=== PATIENT | female | born 1970 | race Caucasian/White ===

== ENCOUNTER → 2018-12-13 16:23 | Outpatient (CLI) | payer OTHER, SELFPAY ==
--- NOTE | 2018-12-13 16:30 | DI.RAD.S_ITS ---
PROCEDURE: XR ANKLE RT MIN 3V INDICATIONS: right ankle pain for 3 weeks, rolled, lateral pain TECHNIQUE: 3 views of the ankle were acquired. COMPARISON: None. FINDINGS: Bones: No fractures or dislocations. Ankle mortise is normally aligned. No suspicious bony lesions. Soft tissues: Mild soft tissue swelling over lateral malleolus is seen. No tibiotalar joint effusion. Achilles tendon appears normal. IMPRESSION: No acute ankle fracture or dislocation. Mild lateral ankle soft tissue swelling. Dictated by: Michael Cintron M.D. on 12/13/2018 at 16:54 Approved by: Michael Cintron M.D. on 12/13/2018 at 16:55
--- NOTE | 2018-12-13 16:30 | DI.RAD.S_ITS ---
PROCEDURE: XR FOOT RT MIN 3V INDICATIONS: right foot pain TECHNIQUE: 3 views of the foot were acquired. COMPARISON: None. FINDINGS: Bones: No fractures or dislocations. No suspicious bony lesions. Soft tissues: No tibiotalar joint effusion. Achilles tendon appears normal. IMPRESSION: No gross acute right foot fracture or dislocation. Dictated by: Michael Cintron M.D. on 12/13/2018 at 16:52 Approved by: Michael Cintron M.D. on 12/13/2018 at 16:54
== END ==
PROVIDERS: PCP Family Medicine; Visit Provider Physician Assistant
DX: M79.671 Pain in right foot (principal); M25.571 Pain in right ankle and joints of right foot; M79.89 Other specified soft tissue disorders
CPT/HCPCS: 73610; 73630

== ENCOUNTER 2020-07-21 11:03 | Emergency (ER) | payer OTHER, SELFPAY ==
[2020-07-21 11:16] VITALS: BP 147/90; PULSE 74; RESP 18; TEMP 37.3; O2SAT 98
--- NOTE | 2020-07-21 11:16 | DI.RAD.S_ITS ---
PROCEDURE: XR SHOULDER LT MIN 2V INDICATIONS: injury TECHNIQUE: 2 views of the shoulder were acquired. COMPARISON: None. FINDINGS: Bones: Transverse fracture through the surgical neck of the humeral head is seen. Minimal displacement. No glenohumeral joint dislocation. No suspicious bony lesions. Visualized ribs appear intact. Cervical spine fixation hardware. Soft tissues: No suspicious soft tissue calcifications. IMPRESSION: Fracture at the surgical neck of the humeral head. No glenohumeral joint dislocation. Dictated by: Khoi Vázquez M.D. on 07/21/2020 at 10:54 Approved by: Khoi Vázquez M.D. on 07/21/2020 at 10:56
--- NOTE | 2020-07-21 11:39 | ED.UPPEXIN ---
HPI - Extremity Injury (Upper) General Chief Complaint: Extremity Injury, Upper Stated Complaint: dislocated left shoulder Time Seen by Provider: 07/21/20 11:36 Source: patient Mode of arrival: Family Vehicle Limitations: no limitations History of Present Illness HPI narrative: Patient is a 49-year-old female who presents with left shoulder pain and injury. She leaned on a friend's table last night at dinner right on the leaf the table full did collapse she fell directly onto her shoulder. She continues to have intense pain in her left shoulder she thinks she may have dislocated. He denies any elbow pain no numbness or tingling or weakness. She denies any other injury. complaint: injury to: left and shoulder Onset (ago): day(s) Related Data Home Medications Medication Instructions Recorded Confirmed tramadol 50 mg tablet 50 mg PO ONCE tab 10/14/18 03/13/20 sumatriptan succinate 25 mg tablet See Rx Instructions PO .COMPLEX 03/13/20 03/13/20 Previous Rx's Medication Instructions Recorded mometasone 0.1 % topical cream 1 applictn TOP DAILY PRN #15 gram 03/13/20 buspirone 5 mg tablet 5 mg PO TID #270 tab 04/16/20 propranolol 20 mg tablet 20 mg PO BID #180 tab 04/19/20 escitalopram oxalate 10 mg tablet 10 mg PO DAILY #90 tab 06/03/20 alprazolam 0.5 mg tablet 0.5 mg PO DAILY #10 tab 06/26/20 hydrocodone-acetaminophen [Chester] 1 tab PO Q6H PRN #10 tab 07/21/20 Allergies Allergy/AdvReac Type Severity Reaction Status Date / Time No Known Drug Allergies Allergy Verified 07/21/20 11:20 Review of Systems Review of Systems Narrative: GENERAL: Denies chills,fever HEENT: Denies throat pain RESPIRATORY: Denies dyspnea, cough, wheezing CARDIOVASCULAR: Denies chest pain, palpitations GASTROINTESTINAL: Denies nausea, vomiting MUSCULOSKELETAL: See HPI SKIN: No rash, no laceration, no pruritus NEUROLOGIC: Denies weakness, dizziness, headache, numbness 8 point review of systems is negative except for those stated above and HPI Patient History Medical History Anxiety associated with depression Essential hypertension History of migraine Social History Smoking Status: Former smoker Smoking Status: Former smoker alcohol intake frequency: 0-2 drinks per day Substance Use Type: does not use Exam Initial Vital Signs Initial Vital Signs: Vital Signs Temperature 99.1 F 07/21/20 11:16 Pulse Rate 74 07/21/20 11:16 Respiratory Rate 18 07/21/20 11:16 Blood Pressure 147/90 H 07/21/20 11:16 Pulse Oximetry 98 07/21/20 11:16 GENERAL: Well-appearing, well-nourished and in no acute distress. CARDIOVASCULAR: peripheral pulses in tact, cap refill <2 sec RESPIRATORY: No respiratory distress, speaks in full sentences without difficulty EXTREMITIES: Normal range of motion, no clubbing or edema. Neurovascularly intact Left shoulder no clavicle step-off, pain over humerus and shoulder area sensation in deltoid intact. Elbow full range of motion and nontender strong distal radial pulse NEUROLOGICAL: Cranial nerves II through XII grossly intact. Normal gait and speech. SKIN: Warm, dry, no petechiae, no rashes or lesions. Procedures Orthopedic Splinting/Casting Injury #1: Side: left Upper Extremity Injury Location: shoulder Upper Extremity Immobilizer: sling/shoulder immobilizer Post splinting neuro exam: intact Post splinting vascular exam: intact Placed by: Nursing Course Orders Ordered: ED Orders 07/21/20 11:16 XR shoulder LT min 2V Stat Vital Signs Vital signs: Vital Signs - 8 hr 07/21/20 11:16 07/21/20 12:29 Temperature 99.1 F Pulse Rate 74 81 Respiratory Rate 18 14 Blood Pressure 147/90 H 144/83 H Pulse Oximetry 98 98 MDM - Extremity Injury (Upper) Imaging Data Extremity x-ray #1: Radiologist's Impression: PROCEDURE: XR SHOULDER LT MIN 2V INDICATIONS: injury TECHNIQUE: 2 views of the shoulder were acquired. COMPARISON: None. FINDINGS: Bones: Transverse fracture through the surgical neck of the humeral head is seen. Minimal displacement. No glenohumeral joint dislocation. No suspicious bony lesions. Visualized ribs appear intact. Cervical spine fixation hardware. Soft tissues: No suspicious soft tissue calcifications. IMPRESSION: Fracture at the surgical neck of the humeral head. No glenohumeral joint dislocation. Dictated by: Khoi Vázqeuz M.D. on 07/21/2020 at 10:54 Discharge Plan Departure Patient Disposition: Home Clinical Impression: Closed left humeral fracture Qualifiers: Encounter type: initial encounter Humerus Location: surgical neck Fracture morphology: unspecified fracture morphology Instructions: DI for Shoulder Fracture Activity Restrictions/Additional Instructions: *You have been diagnosed with left humeral fracture *What to do: Keep arm in sling at all times except to days. This will take 6-8 weeks to heal *Continue to take medications as directed Ibuprofen 600 mg every 6-8 hours if needed for orjg-cm-tngaokul pain Chester 1 tablet every 6 hours if needed for severe pain--> [facility] [place] *Follow up with your primary care provider in 2-3 days Call orthopedics 1st thing tomorrow morning to schedule follow-up appointment to ensure proper healing *Return to ER if you should have increasing pain, numbness, tingling, weakness or any new, worsening or concerning symptoms CONTROLLED SUBSTANCE DISCHARGE (Narcotoic/benzodiazepine/Flexeril/Phenergan) 1. You have been prescribed narcotic medications, it does have acetaminophen/Tylenol/paracetamol in it so do not take extra Tylenol or Tylenol containing products TRAMADOL DOES NOT CONTAIN TYLENOL 2. Please understand that we cannot provide further refills of narcotics, benzodiazepines or controlled substances through the ED and her pain management will need to be through your provider. 3. While on these medications you cannot drive or operate heavy machinery. 4. You cannot sign legal documents or perform any duties such as this. 5. As long as you're taking opiate pain medications he should also be taking a stool softener such as Colace, Dulcolax, MiraLAX or prune juice, to help avoid constipation. Prescriptions: New hydrocodone-acetaminophen [Chester] 5-325 mg tablet 1 tab PO Q6H PRN (Reason: pain) Qty: 10 RF: 0 No Action tramadol 50 mg tablet 50 mg PO ONCE RF: 0 Hold Instructions: Trial of cessation buspirone 5 mg tablet 5 mg PO TID Qty: 270 RF: 3 propranolol 20 mg tablet 20 mg PO BID Qty: 180 RF: 1 escitalopram oxalate [Lexapro] 10 mg tablet 10 mg PO DAILY Qty: 90 RF: 2 alprazolam 0.5 mg tablet 0.5 mg PO DAILY Qty: 10 RF: 1 sumatriptan succinate [Imitrex] 25 mg tablet See Rx Instructions PO .COMPLEX RF: 0 mometasone 0.1 % cream 1 applictn TOP DAILY PRN (Reason: rash) Qty: 15 RF: 1 Referrals: [facility] [Provider Group] Rosendo Pacheco MD [Primary Care Provider] -
[2020-07-21 12:29] VITALS: BP 144/83; PULSE 81; RESP 14; O2SAT 98
--- NOTE | 2020-07-21 12:30 | PC.NURSE ---
sling applied to left arm, patient reports the sling feels like it fits well.
== END 2020-07-21 12:29 | disposition home or self-care (01) ==
PROVIDERS: Emergency Provider Emergency Medicine; PCP Student in an Organized Health Care Education/Training Program
DX: S42.302A Unspecified fracture of shaft of humerus, left arm, initial encounter for closed fracture (principal); W19.XXXA Unspecified fall, initial encounter; I10 Essential (primary) hypertension
CPT/HCPCS: 73030; 99283

== ENCOUNTER → 2020-12-25 09:58 | Outpatient (CLI) | payer OTHER, SELFPAY ==
[2020-12-25] MEDS: COVID-19 VACC, Ad26(JANSSEN)/PF 0.5 ML IM (10:04)
== END ==
PROVIDERS: PCP Student in an Organized Health Care Education/Training Program; Visit Provider Internal Medicine
DX: Z23 Encounter for immunization (principal)
CPT/HCPCS: 0031A; 91303

== ENCOUNTER 2021-02-24 10:27 | Emergency (ER) | payer OTHER, SELFPAY ==
[2021-02-24 10:40] VITALS: BP 153/92; PULSE 63; RESP 14; TEMP 36.7; O2SAT 99
--- NOTE | 2021-02-24 10:43 | DI.RAD.S_ITS ---
PROCEDURE: XR KNEE LT 3V INDICATIONS: twisting injury, continued pain. TECHNIQUE: 3 views of the knee were acquired. COMPARISON: None. FINDINGS: Bones: No fractures or dislocations. No suspicious bony lesions. Soft tissues: Questionable small joint effusion. No suspicious soft tissue calcifications. IMPRESSION: Possible small joint effusion may indicate internal derangement. Consider MRI if symptoms do not respond to conservative management. Dictated by: Amelie Villalba M.D. on 02/24/2021 at 11:12 Approved by: Amelie Villalba M.D. on 02/24/2021 at 11:13
--- NOTE | 2021-02-24 12:52 | ED_ITS ---
HPI - Extremity Injury (Lower) General Chief Complaint: Extremity Injury, Lower Stated Complaint: twisted left knee 4 days ago Time Seen by Provider: 02/24/21 12:30 Source: patient Mode of arrival: Ambulatory History of Present Illness HPI Narrative: 50-year-old female nonsmoker with noncontributory medical history presents with persistent left knee pain since an injury for 5 days ago. She states that she was bending and twisting and felt pain in her left medial knee. She continues to have pain with ambulation though it is slightly better than it was initially. She states the pain is worse with motion and palpation and improves with rest. She denies any numbness, tingling or weakness. She denies any clumsiness or the sensation that her knee is wobbling. She denies any history of the same. She denies other injury and is otherwise at baseline. Related Data Home Medications Medication Instructions Recorded Confirmed tramadol 50 mg tablet 50 mg PO ONCE tab 10/14/18 03/13/20 sumatriptan succinate 25 mg tablet See Rx Instructions PO .COMPLEX 03/13/20 03/13/20 (Imitrex) Previous Rx's Medication Instructions Recorded mometasone 0.1 % topical cream 1 applictn TOP DAILY PRN #15 gram 03/13/20 buspirone 5 mg tablet 5 mg PO TID #270 tab 04/16/20 escitalopram oxalate 10 mg tablet 10 mg PO DAILY #90 tab 06/03/20 (Lexapro) hydrocodone 5 mg-acetaminophen 325 1 tab PO Q6H PRN #10 tab 07/21/20 mg tablet (Ramsay) alprazolam 0.5 mg tablet 0.5 mg PO DAILY #10 tab 01/14/21 propranolol 20 mg tablet 20 mg PO BID #180 tab 02/19/21 ketorolac 10 mg tablet 10 mg PO Q6H PRN #14 tab 02/24/21 Allergies Allergy/AdvReac Type Severity Reaction Status Date / Time No Known Drug Allergies Allergy Verified 02/24/21 10:43 Review of Systems Review of Systems Narrative: GEN: AOx3 and in mild distress EYES: Pupils are equal, round, and reactive to light and accommodation. Extraoccular muscles are intact bilaterally. There is no subconjunctival hemorrhage or exudate. CHEST: Lungs are clear to auscultation bilaterally and free of wheezes, rales, or rhonchi. Heart rate is regular rhythm, there are no murmurs, clicks, rubs, or gallops. There is no chest wall tenderness. ABD: Abdomen is soft and nontender. There is no guarding or rebound. Bowel sounds are normal in all 4 quadrants. There is no mass or organomegaly. EXT: Full but slightly painful range of motion of left knee, tender at the medial joint line. No ligamentous instability, no effusion. No erythema or warmth SKIN: Warm, pink, and dry. No erythema or rash Patient History Medical History Anxiety associated with depression Essential hypertension History of migraine Social History Smoking Status: Former smoker Smoking Status: Former smoker alcohol intake frequency: 0-2 drinks per day Substance Use Type: marijuana Exam Initial Vital Signs Initial Vital Signs: Vital Signs Temperature 98.1 F 02/24/21 10:40 Pulse Rate 63 02/24/21 10:40 Respiratory Rate 14 02/24/21 10:40 Blood Pressure 153/92 H 02/24/21 10:40 Pulse Oximetry 99 02/24/21 10:40 Course Orders Ordered: ED Orders 02/24/21 10:43 XR knee LT 3V Stat Vital Signs Vital signs: Vital Signs - 8 hr 02/24/21 10:40 Temperature 98.1 F Pulse Rate 63 Respiratory Rate 14 Blood Pressure 153/92 H Pulse Oximetry 99 MDM - Extremity Injury (Lower) Imaging Data Extremity x-ray #1: Radiologist's Impression: LexRochelle L 50 F 1970 [address] [id number] ReportSigned Patient: Rochelle Burnett LMR#: [id number]: 1970Acct:[id number]/Sex: 50 / FDate of Service: 02/24/21Loc: EDAccession Number: [id number] Procedure: XR knee LT 3V Ordering Provider: Harlan Hernandez D.O. PROCEDURE: XR KNEE LT 3V INDICATIONS: twisting injury, continued pain. TECHNIQUE: 3 views of the knee were acquired. COMPARISON: None. FINDINGS: Bones: No fractures or dislocations. No suspicious bony lesions. Soft tissues: Questionable small joint effusion. No suspicious soft tissue calcifications. IMPRESSION: Possible small joint effusion may indicate internal derangement. Consider MRI if symptoms do not respond to conservative management. Dictated by: Amelie Villalba M.D. on 02/24/2021 at 11:12 Approved by: Amelie Villalba M.D. on 02/24/2021 at 11:13 Discharge Plan Departure Patient Disposition: Home Clinical Impression: Acute internal derangement of left knee Instructions: DI for Knee Sprain Activity Restrictions/Additional Instructions: *You have been diagnosed with [left knee injury, likely partial MCL or meniscal injury. X-rays reassuring and there is no fracture or dislocation] *What to do: *Please continue to take your regular medications as directed. [x ] New medication prescriptions sent to your pharmacy: [[facility] ] [ ] New medication written as a paper prescription [ ] No new medications given *Please follow up with your primary care provider in 2-3 days, call for an appointment. Let them know you were seen in the Emergency Department and that we ask that you be seen in follow up. We will electronically transmit a record of today's note if your PCP is in our system *If you do not have a primary care provider please contact the [facility] Resource line at [phone]. They will ask some questions about your medical history and help get you set up with a doctor in the community. *Return to Emergency Department if you should have any new, worsening or concerning symptoms, such as [fever greater than 101 F, shaking chills, worsening pain, persistent vomiting or other bothersome symptoms] Prescriptions: New ketorolac 10 mg tablet 10 mg PO Q6H PRN (Reason: pain) Qty: 14 RF: 0 No Action tramadol 50 mg tablet 50 mg PO ONCE RF: 0 Hold Instructions: Trial of cessation buspirone 5 mg tablet 5 mg PO TID Qty: 270 RF: 3 escitalopram oxalate [Lexapro] 10 mg tablet 10 mg PO DAILY Qty: 90 RF: 2 alprazolam 0.5 mg tablet 0.5 mg PO DAILY Qty: 10 RF: 0 propranolol 20 mg tablet 20 mg PO BID Qty: 180 RF: 0 sumatriptan succinate [Imitrex] 25 mg tablet See Rx Instructions PO .COMPLEX RF: 0 mometasone 0.1 % cream 1 applictn TOP DAILY PRN (Reason: rash) Qty: 15 RF: 1 hydrocodone-acetaminophen [Ramsay] 5-325 mg tablet 1 tab PO Q6H PRN (Reason: pain) Qty: 10 RF: 0 Referrals: Rosendo Pacheco MD [Primary Care Provider] -
== END 2021-02-24 13:06 | disposition home or self-care (01) ==
PROVIDERS: Emergency Provider Emergency Medicine; PCP Student in an Organized Health Care Education/Training Program
DX: M23.92 Unspecified internal derangement of left knee (principal)
CPT/HCPCS: 73562; 99283

== ENCOUNTER → 2021-06-04 13:13 | Outpatient (CLI) | payer OTHER, SELFPAY ==
[2021-06-04 14:07] LABS: COVID19 -Nasal RAPID Negative (Negative)
== END ==
PROVIDERS: PCP Student in an Organized Health Care Education/Training Program; Visit Provider Surgery
DX: Z20.822 Contact with and (suspected) exposure to COVID-19 (principal); Z01.812 Encounter for preprocedural laboratory examination
CPT/HCPCS: 87635; C9803

== ENCOUNTER 2021-06-05 11:49 | Day surgery (SDC) | payer OTHER, SELFPAY ==
[2021-06-05 12:08] VITALS: BP 153/112; PULSE 73; RESP 16; TEMP 36.6; O2SAT 97; BMI 26.5
[2021-06-05] MEDS: LACTATED RINGERS 1,000 ML 42 ML IV (12:18)
--- NOTE | 2021-06-05 12:50 | PM.HP.1 ---
History of Present Illness History of Present Illness Date Patient Seen: 06/05/21 Time Patient Seen: 12:51 Chief complaint: SCREENING COLONOSCOPY Narrative: First colonoscopy with colon cancer screening. H/o rectal prolapse repair with intra abdominal mesh. No family history for colon cancer. Patient History Medical History Anxiety associated with depression Essential hypertension History of migraine Family & Social History Social History: household members spouse Tobacco & Substance use: Smoking Status Former smoker alcohol intake current alcohol intake frequency 0-2 drinks per day Substance Use Type marijuana Meds Home Medications and Allergies Home Medications Medication Instructions Recorded Confirmed Type escitalopram oxalate 10 mg tablet 10 mg PO DAILY #90 tab 06/03/20 06/05/21 Rx (Lexapro) alprazolam 0.5 mg tablet 0.5 mg PO DAILY #10 tab 05/05/21 06/05/21 Rx buspirone 5 mg tablet 5 mg PO TID #270 tab 05/20/21 06/05/21 Rx propranolol 20 mg tablet 20 mg PO BID #180 tab 05/20/21 06/05/21 Rx Allergies Allergy/AdvReac Type Severity Reaction Status Date / Time No Known Drug Allergies Allergy Verified 06/05/21 12:03 Review of Systems Review of Systems ROS: Yes All systems reviewed with the patient and are negative except as otherwise documented Exam Vital Signs (past 8 hours): - 06/05/21 12:08 Temperature 97.8 F Pulse Rate 73 Respiratory Rate 16 Blood Pressure 153/112 H Pulse Oximetry 97 Oxygen Delivery Method Room Air Const General: cooperative and healthy appearing Nutritional Appearance: well nourished Orientation: alert and awake [facility] Head: normal to inspection, normocephalic and atraumatic Eyes General: appearance normal, both eyes and all related structures Neck Neck: normal visual inspection Resp Effort & Inspection: normal respiratory effort and able to speak in complete sentences Auscultation: clear to auscultation bilaterally Cardio Rate: regular rate Rhythm: regular rhythm GI Inspection: normal to inspection Skin General: no rashes or lesions noted Neuro General: patient alert and patient oriented x3 Extrem General: normal to inspection Psych Appearance: grossly normal Affect: normal affect Judgment: judgment good Assessment & Plan Time Spent With Patient Critical Care time: I spent a total of [] minutes of critical care time on this patient's care today; this time is exclusive of procedural time.
[2021-06-05] MEDS: MIDAZOLAM 5 MG/5 ML VIAL IV (13:07)
[2021-06-05] MEDS: fentaNYL 250 MCG/5 ML INJ IV (13:07)
--- NOTE | 2021-06-05 13:12 | PM.OP.ENDO ---
Operative Date/Time/Diagnoses Date of procedure: 06/05/21 Time of procedure: 13:12 Pre-op diagnosis: Colon cancer screening Post-op diagnosis: same Procedure & Clinicians Study performed: Colonoscopy with moderate sedation Same procedure as scheduled: Yes Indications: Colon cancer screening Surgeon: Clau Donnelly Procedure Notes SCOAP/Timeout: Done Procedure in detail: Preop diagnosis: Colon cancer screening Postop diagnosis: Same Operative procedure: Colonoscopy with moderate sedation Surgeon: Florina Donnelly MD Findings: Mild diverticulosis of the descending colon. No polyps. Procedure: Patient placed in lateral position. Rectal exam is performed showing normal tone no masses. Scope was inserted into the rectum and advanced to the ileocecal valve with minimal difficulty. Insufflation extraction of scope and the above findings. Retroflexed in the rectum was included. Impression: Normal colonoscopy with diverticulosis of a mild degree in the descending colon no polyps. Plan: Repeat colonoscopy in 10 years unless otherwise indicated by change in family history or clinical condition Sedation minutes: 11 Findings: diverticulosis Specimen(s): none sent Complications: none Post-procedure Recommendations: Colonscopy in 10 years
[2021-06-05 13:14] VITALS: BP 142/89; PULSE 70; RESP 14; TEMP 36.1; O2SAT 94
[2021-06-05 13:19] VITALS: BP 131/90; PULSE 71; RESP 14; O2SAT 94
[2021-06-05 13:25] VITALS: BP 139/90; PULSE 73; RESP 12; O2SAT 96
[2021-06-05 13:43] VITALS: BP 121/91; PULSE 69; RESP 16; TEMP 36.7; O2SAT 98
[2021-06-05 14:20] VITALS: BP 132/94; PULSE 66; RESP 16; TEMP 36.8; O2SAT 99
== END 2021-06-05 14:30 | disposition home or self-care (01) ==
PROVIDERS: PCP Student in an Organized Health Care Education/Training Program; Referring Provider Surgery; Visit Provider Surgery
PROC: 0DJD8ZZ Inspection of Lower Intestinal Tract, Via Natural or Artificial Opening Endoscopic (ICD-10-PCS; CPT 45378; principal; 2021-06-05 13:00)
DX: Z12.11 Encounter for screening for malignant neoplasm of colon (principal); I10 Essential (primary) hypertension; F32.9 Major depressive disorder, single episode, unspecified; F41.9 Anxiety disorder, unspecified; K57.30 Diverticulosis of large intestine without perforation or abscess without bleeding
CPT/HCPCS: 45378; 99152; J2250; J3010

== ENCOUNTER → 2021-07-05 11:53 | Outpatient (CLI) | payer OTHER, SELFPAY ==
--- NOTE | 2021-07-05 11:54 | DI.MG.S_ITS ---
BILATERAL DIGITAL SCREENING MAMMOGRAM 3D/2D WITH CAD: 07/05/2021 CLINICAL: Routine screening. Baseline exam. No prior exams were available for comparison. There are scattered fibroglandular elements in both breasts. Current study was also evaluated with a Computer Aided Detection (CAD) system. No significant masses, calcifications, or other findings are seen in either breast. IMPRESSION: NEGATIVE There is no mammographic evidence of malignancy. A 1 year screening mammogram is recommended. This exam was interpreted at Station ID: [id number]. NOTE: For mammograms, a report in lay terms will be sent to the patient. Approximately 15% of breast malignancies will not be visualized mammographically. In the management of a palpable breast mass, a negative mammogram must not discourage biopsy of a clinically suspicious lesion. Electronically Signed By: Coleman Sheridan M.D., jr/taisha:07/07/2021 11:34:09 letter sent: Normal Exam ACR BI-RADS Category 1: Negative [id number]
== END ==
PROVIDERS: PCP Student in an Organized Health Care Education/Training Program; Referring Provider Student in an Organized Health Care Education/Training Program; Visit Provider Student in an Organized Health Care Education/Training Program
DX: Z12.31 Encounter for screening mammogram for malignant neoplasm of breast (principal)
CPT/HCPCS: 77063; 77067

== ENCOUNTER 2021-11-05 12:01 | Emergency (ER) | payer OTHER, SELFPAY ==
[2021-11-05] VITALS (40 sets, daily range): BP systolic 122–175; BP diastolic 84–116; PULSE 54–80; RESP 10–24; TEMP 36.6; O2SAT 94–98; BMI 25.0
--- NOTE | 2021-11-05 12:04 | DI.RAD.S_ITS ---
PROCEDURE: XR KNEE LT 1TO2V INDICATIONS: ankle dislocation TECHNIQUE: 2 views of the knee were acquired. COMPARISON: [facility], , XR KNEE LT 3V, 02/24/2021, 10:51. FINDINGS: Bones: Limited evaluation of the left knee secondary to patient positioning. There appears to be a displaced fracture involving the proximal left fibular diaphysis. Widening of the proximal tibiofibular joint not able to be assessed due to patient positioning. The patella appears to be stable in alignment. No definite fractures noted in the imaged portions of the proximal tibia or distal femur. Soft tissues: No joint effusion. No suspicious soft tissue calcifications. IMPRESSION: Proximal left fibular diaphyseal fracture. No other definite fractures noted. However, study is limited due to patient positioning on this evaluation. Dictated by: Parish Grimaldo M.D. on 11/05/2021 at 13:49 Approved by: Parish Grimaldo M.D. on 11/05/2021 at 13:51
--- NOTE | 2021-11-05 12:04 | DI.RAD.S_ITS ---
PROCEDURE: XR ANKLE LT 2V INDICATIONS: dislocated TECHNIQUE: 2 views of the ankle were acquired. COMPARISON: [facility], CR, XR ANKLE RT MIN 3V, 12/13/2018, 16:32. FINDINGS: Bones: There is fracture dislocation at the tibiotalar joint. Mildly comminuted fractures of the distal left fibula and tibia are present with lateral dislocation of the talus. Distal tibial fracture involves the medial malleolus which is displaced laterally along with the adjacent talus. Overlying soft tissue edema. Suggestion of widening of the subtalar joint. No suspicious osseous lesions. Soft tissues: No tibiotalar joint effusion. Achilles tendon appears normal. IMPRESSION: Distal left fibular and tibial fractures with laterally dislocated talus relative to the tibiotalar joint. Dictated by: Parish Grimaldo M.D. on 11/05/2021 at 13:44 Approved by: Parish Grimaldo M.D. on 11/05/2021 at 13:48
[2021-11-05] MEDS: HYDROMORPHONE 0.5 MG INJ IV (12:16)
--- NOTE | 2021-11-05 12:44 | ED_ITS ---
HPI - Extremity Injury (Lower) General Chief Complaint: Extremity Injury, Lower Stated Complaint: Dislocated L ankle Time Seen by Provider: 11/05/21 12:03 History of Present Illness HPI Narrative: Patient is a 50-year-old female with history of anxiety who presents with left ankle deformity. She stepped off boat onto a doc onto a cleat and fell. She has no other injury. She is able to move her toes. She denies any hip or knee pain. She not on any anti-platelet medication. she has a previous injury and surgery to that same ankle. Related Data Previous Rx's Medication Instructions Recorded buspirone 5 mg tablet 5 mg PO TID #270 tab 05/20/21 propranolol 20 mg tablet 20 mg PO BID #180 tab 05/20/21 escitalopram oxalate 10 mg tablet 10 mg PO DAILY #90 tab 06/17/21 (Lexapro) alprazolam 0.5 mg tablet 0.5 mg PO DAILY #10 tab 08/07/21 hydrocodone 5 mg-acetaminophen 325 1 tab PO Q6H PRN #20 tab 11/05/21 mg tablet Allergies Allergy/AdvReac Type Severity Reaction Status Date / Time No Known Drug Allergies Allergy Verified 06/05/21 12:03 Review of Systems Review of Systems Narrative: GENERAL: Denies chills,fever HEENT: Denies throat pain RESPIRATORY: Denies dyspnea, cough, wheezing CARDIOVASCULAR: Denies chest pain, palpitations GASTROINTESTINAL: Denies nausea, vomiting MUSCULOSKELETAL: See HPI SKIN: No rash, no laceration, no pruritus NEUROLOGIC: Denies weakness, dizziness, headache, numbness 8 point review of systems is negative except for those stated above and HPI Patient History Medical History Anxiety associated with depression Essential hypertension History of migraine Social History household members: spouse Smoking Status: Former smoker alcohol intake: current Smoking Status: Former smoker alcohol intake frequency: 0-2 drinks per day Substance Use Type: marijuana Exam Initial Vital Signs Initial Vital Signs: Vital Signs Temperature 97.8 F 11/05/21 12:16 Pulse Rate 75 11/05/21 12:16 Respiratory Rate 16 11/05/21 12:16 Blood Pressure 175/116 H 11/05/21 12:16 Pulse Oximetry 97 11/05/21 12:16 GENERAL: Alert 50-year-old female appears in pain HEENT: Head atraumatic,EOMI, pupils reactive, face symmetric, [moist] mucous membranes NECK: Supple no vertebral tenderness no step-off CARDIOVASCULAR: Regular rate and rhythm without murmurs, rubs or gallops. RESPIRATORY: Breath sounds equal bilaterally, no wheezes rales or rhonchi. ABDOMEN: Soft, nontender. Normoactive bowel sounds all 4 quadrants. No guarding or rebound. EXTREMITIES: Normal range of motion, no clubbing or edema. Neurovascularly inta ct Left lower extremity obvious ankle deformity without any open sores. Distal pedal pulses intact. Knee is within normal limits pelvis is stable no hip pain. NEUROLOGICAL: Alert and oriented x4. SKIN: Warm, dry, no laceration, no petechiae, no rashes or lesions. Procedures Orthopedic Fracture Reduction Fracture #1: Side: left Fracture Reduction Location: tibia and fibula Analgesia: procedural sedation Technique: direct manipulation Post Reduction X-rays Demonstrate: anatomical reduction Post-reduction neuro exam: intact and no change Post-reduction vascular exam: intact and no change Splint Applied: Yes Orthopedic Splinting/Casting Injury #1: Side: left Lower Extremity Injury Location: ankle Lower Extremity Immobilizer: posterior splint and stirrup splint Other Orthopedic Equipment: crutches Post splinting neuro exam: intact Post splinting vascular exam: intact Placed by: Provider Procedural Sedation Time out performed: Yes Indication: fracture/dislocation reduction Preparation: infection control practitioner applied, pulse oximeter, capnometry used and supplemental O2 applied IV Propofol dose (mg): 100 Intraservice time/total sedation time (min): 16 ED Sedation Level: Moderate (Concious) Patient Tolerated Procedure: No complications Complications: none Course Orders Ordered: ED Orders 11/05/21 12:04 XR ankle LT 2V Stat XR knee LT 1to2V Stat 11/05/21 12:46 COVID19 -Nasal swab/Pre-Proc Stat 11/05/21 13:26 XR ankle LT 2V Stat 11/05/21 14:15 CT LE LT wo con Stat Discontinued Medications Hydrocodone Bitart/Acetaminophen (Hydrocodone/Acet 5/325 Tablet) 2 tab PO NOW ONE Stop: 11/05/21 13:59 Last Admin: 11/05/21 14:04 Dose: 2 tab Documented by: KBRYERS Hydromorphone HCl (Hydromorphone 0.5 Mg Inj) 0.5 mg IV NOW ONE Stop: 11/05/21 12:05 Last Admin: 11/05/21 12:16 Dose: 0.5 mg Documented by: JEFFERSON Hydromorphone HCl (Hydromorphone 1 Mg Inj) 1 mg IV NOW ONE Stop: 11/05/21 13:27 Last Admin: 11/05/21 13:28 Dose: 1 mg Documented by: FAITH Propofol (Propofol 200 Mg/20 Ml Vial) 70 mg 1 mg/kg (70 mg) IV NOW ONE Stop: 11/05/21 12:45 Last Admin: 11/05/21 13:18 Dose: 70 mg Documented by: FAITH Propofol (Propofol 200 Mg/20 Ml Vial) 30 mg IV NOW ONE Stop: 11/05/21 13:31 Last Admin: 11/05/21 13:20 Dose: 30 mg Documented by: FAITH Vital Signs Vital signs: Vital Signs - 8 hr 11/05/21 12:16 11/05/21 12:26 11/05/21 12:30 Temperature 97.8 F Pulse Rate 75 65 61 Respiratory Rate 16 23 21 Blood Pressure 175/116 H 155/91 H Pulse Oximetry 97 94 97 11/05/21 12:35 11/05/21 12:40 11/05/21 12:45 Temperature Pulse Rate 60 58 L 61 Respiratory Rate 15 10 L 15 Blood Pressure Pulse Oximetry 96 97 95 11/05/21 12:50 11/05/21 12:55 11/05/21 13:00 Temperature Pulse Rate 57 L 58 L 58 L Respiratory Rate 12 18 23 Blood Pressure 155/98 H Pulse Oximetry 95 97 98 11/05/21 13:03 11/05/21 13:05 11/05/21 13:10 Temperature Pulse Rate 59 L 61 56 L Respiratory Rate 21 24 20 Blood Pressure 153/85 H 145/96 H 169/95 H Pulse Oximetry 97 97 96 11/05/21 13:15 11/05/21 13:20 11/05/21 13:21 Temperature Pulse Rate 62 76 80 Respiratory Rate 20 20 20 Blood Pressure 149/89 H 140/103 H Pulse Oximetry 98 97 95 11/05/21 13:25 11/05/21 13:26 11/05/21 13:30 Temperature Pulse Rate 73 71 61 Respiratory Rate 20 20 20 Blood Pressure 153/114 H Pulse Oximetry 97 97 97 11/05/21 13:31 11/05/21 13:35 11/05/21 13:36 Temperature Pulse Rate 61 58 L 58 L Respiratory Rate 20 19 16 Blood Pressure 128/84 122/87 122/87 Pulse Oximetry 96 97 97 11/05/21 13:40 11/05/21 13:45 11/05/21 13:50 Temperature Pulse Rate 56 L 54 L 58 L Respiratory Rate 20 20 16 Blood Pressure 128/85 128/89 Pulse Oximetry 97 97 98 11/05/21 13:51 11/05/21 14:05 11/05/21 14:06 Temperature Pulse Rate 57 L 59 L 62 Respiratory Rate 20 18 18 Blood Pressure 141/92 H 144/102 H Pulse Oximetry 97 96 96 11/05/21 14:07 11/05/21 14:10 11/05/21 14:15 Temperature Pulse Rate 62 61 Respiratory Rate Blood Pressure 144/102 H Pulse Oximetry 97 96 11/05/21 14:19 11/05/21 14:20 11/05/21 14:25 Temperature Pulse Rate 60 61 57 L Respiratory Rate 16 18 Blood Pressure Pulse Oximetry 97 97 11/05/21 14:30 11/05/21 14:31 11/05/21 14:35 Temperature Pulse Rate 58 L 56 L 61 Respiratory Rate 16 Blood Pressure 151/99 H Pulse Oximetry 95 96 97 11/05/21 14:46 11/05/21 14:50 11/05/21 15:00 Temperature Pulse Rate 68 66 67 Respiratory Rate 16 18 Blood Pressure Pulse Oximetry 96 96 96 11/05/21 16:17 Temperature Pulse Rate 64 Respiratory Rate 16 Blood Pressure 152/92 H Pulse Oximetry 96 MDM - Extremity Injury (Lower) Lab Data Labs: Lab Results 11/05/21 Range/Units 12:46 SARS-CoV-2 (PCR) Negative (Negative) Point of Care Testing Test Results Not applicable Imaging Data Extremity x-ray #1: Radiologist's Impression: PROCEDURE:? XR ANKLE LT 2V ? INDICATIONS:? dislocated ? TECHNIQUE:? 2 views of the ankle were acquired.? ? COMPARISON:? [facility], CR, XR ANKLE RT MIN 3V, 12/13/2018, 16:32. ? FINDINGS:? ? Bones:? There is fracture dislocation at the tibiotalar joint.? Mildly comminuted fractures of the distal left fibula and tibia are present with lateral dislocation of the talus.? Distal tibial fracture involves the medial malleolus which is displaced laterally along with the adjacent talus.? Overlying soft tissue edema.? Suggestion of widening of the subtalar joint.? No suspicious osseous lesions. ? Soft tissues:? No tibiotalar joint effusion.? Achilles tendon appears normal.? ? ? IMPRESSION:? ? Distal left fibular and tibial fractures with laterally dislocated talus relative to the tibiotalar joint. ? Dictated by: Parish Grimaldo M.D. on 11/05/2021 at 13:44 ? ? Extremity x-ray #2: Radiologist's Impression: PROCEDURE:? XR KNEE LT 1TO2V ? INDICATIONS:? ankle dislocation ? TECHNIQUE:? 2 views of the knee were acquired.? ? COMPARISON:? [facility], , XR KNEE LT 3V, 02/24/2021, 10:51. ? FINDINGS:? ? Bones:? Limited evaluation of the left knee secondary to patient positioning.? There appears to be a displaced fracture involving the proximal left fibular diaphysis.? Widening of the proximal tibiofibular joint not able to be assessed due to patient positioning.? The patella appears to be stable in alignment.? No definite fractures noted in the imaged portions of the proximal tibia or distal femur. ? Soft tissues:? No joint effusion.? No suspicious soft tissue calcifications.? ? ? IMPRESSION:? ? Proximal left fibular diaphyseal fracture.? No other definite fractures noted.? However, study is limited due to patient positioning on this evaluation. ? ? Dictated by: Parish Grimaldo M.D. on 11/05/2021 at 13:49 ? ? Approved by: Parish Grimaldo M.D. on 11/05/2021 at 13:51 ? Extremity x-ray #3: Radiologist's Impression: PROCEDURE:? XR ANKLE LT 2V ? INDICATIONS:? post reduction ? TECHNIQUE:? 3 views of the ankle were acquired.? ? COMPARISON:? [facility], , XR ANKLE LT 2V, 11/05/2021, 12:27. ? FINDINGS:? ? Bones:? Spastic post close reduction of left ankle fracture-dislocation.? There is normal association of the talus with the tibia and the calcaneus with the talus.? Lateral and medial malleolus fractures are in near anatomic alignment.? Postsurgical changes compatible with prior tibial-fibular arthrodesis are stable. ? Soft tissues:? No tibiotalar joint effusion.? Achilles tendon appears normal.? ? ? IMPRESSION:? Status post reduction of left ankle fracture-dislocation. ? ? Dictated by: Kelsea Felix MD, PhD on 11/05/2021 at 13:40? CT LE: Radiologist's Impression: PROCEDURE:? CT LE LT W CON ? INDICATIONS:? ankle fracture ? TECHNIQUE:? Noncontrast 1-1.5 mm axial sections acquired from above the tibiotalar joint to the bottom of the calcaneus, with coronal and sagittal reformats.? ? COMPARISON:? [facility], CR, XR ANKLE LT 2V, 11/05/2021, 13:24. ? FINDINGS:? Image quality:? Excellent.? ? Bones:? Comminuted fracture of the medial and lateral malleoli with evidence of prior syndesmosis fixation. Small plantar calcaneal enthesophyte. Remote fracture deformity of the 1st metatarsal base. Hallux valgus with fibrocystic change of the 1st metatarsal head as well as degenerative changes of the hallux sesamoids. ? Soft tissues:? Diffuse soft tissue edema about the fracture sites.? Small tibiotalar joint effusion ? IMPRESSION:? Comminuted fracture of the medial and lateral malleoli. ? ? Dictated by: Buster Santos M.D. on 11/05/2021 at 15:09 ? ? [facility] Narrative Medical decision making narrative: The patient's ankle is reduced but it continues to be on stable. Splint actually seems to be holding it. CT confirms comminuted fracture. Dr. Rose orthopedics has been updated on test results. Dates Dr. Liz will follow-up with patient in about 5 days. Request patient elevate and ice as much as possible to help decrease the swelling. Patient is being given orthopedic recommendations and follow-up and contact information. Along with medicine. Discharge Plan Departure Patient Disposition: Home Clinical Impression: Closed fracture dislocation of ankle Qualifiers: Encounter type: initial encounter Laterality: left Qualified Code(s): S82.892A - Other fracture of left lower leg, initial encounter for closed fracture Instructions: Ankle Fracture Activity Restrictions/Additional Instructions: *You have been diagnosed with left ankle fracture and dislocation *What to do: Elevate as high as often as possible ice 20-30 minutes at a time through the splint. Do not take splint off to bathe *Continue to take medications as directed [place] 1 tablet every 6 hours if needed for severe pain *Follow up with your primary care provider in 2-3 days or call [phone] Dr. Liz his office should call you if you do have an appointment on Wednesday but I am unsure of the details. If you do not hear from them by tomorrow please call *Return to ER if you should have increasing pain numbness tingling weakness fever or any new, worsening or concerning symptoms CONTROLLED SUBSTANCE DISCHARGE (Narcotoic/benzodiazepine/Flexeril/Phenergan) 1. You have been prescribed narcotic medications, it does have acetaminophen/Tylenol/paracetamol in it, DO NOT TAKE MORE THAN 4,00mg in 24 hours of Tylenol. TRAMADOL DOES NOT CONTAIN TYLENOL 2. Please understand that we cannot provide further refills of narcotics, benzodiazepines or controlled substances through the ED and her pain management will need to be through your provider. 3. While on these medications you cannot drive or operate heavy machinery. 4. You cannot sign legal documents or perform any duties such as this. 5. As long as you're taking opiate pain medications he should also be taking a stool softener such as Colace, Dulcolax, MiraLAX or prune juice, to help avoid constipation. Prescriptions: New hydrocodone-acetaminophen 5-325 mg tablet 1 tab PO Q6H PRN (Reason: pain) Qty: 20 0RF No Action propranolol 20 mg tablet 20 mg PO BID Qty: 180 2RF buspirone 5 mg tablet 5 mg PO TID Qty: 270 2RF escitalopram oxalate [Lexapro] 10 mg tablet 10 mg PO DAILY Qty: 90 2RF alprazolam 0.5 mg tablet 0.5 mg PO DAILY Qty: 10 0RF Referrals: Rosendo Pacheco MD [Primary Care Provider] - Christa Helms MD [Physician] -
[2021-11-05 13:04] LABS: COVID19 -Nasal RAPID Negative (Negative)
[2021-11-05] MEDS: propofoL 200 MG/20 ML VIAL 70 MG IV (13:18)
[2021-11-05] MEDS: propofoL 200 MG/20 ML VIAL 30 MG IV (13:20)
--- NOTE | 2021-11-05 13:26 | DI.RAD.S_ITS ---
PROCEDURE: XR ANKLE LT 2V INDICATIONS: post reduction TECHNIQUE: 3 views of the ankle were acquired. COMPARISON: [facility], CR, XR ANKLE LT 2V, 11/05/2021, 12:27. FINDINGS: Bones: Spastic post close reduction of left ankle fracture-dislocation. There is normal association of the talus with the tibia and the calcaneus with the talus. Lateral and medial malleolus fractures are in near anatomic alignment. Postsurgical changes compatible with prior tibial-fibular arthrodesis are stable. Soft tissues: No tibiotalar joint effusion. Achilles tendon appears normal. IMPRESSION: Status post reduction of left ankle fracture-dislocation. Dictated by: Kelsea Felix MD, PhD on 11/05/2021 at 13:40 Approved by: Kelsea Felix MD, PhD on 11/05/2021 at 13:43
[2021-11-05] MEDS: HYDROMORPHONE 1 MG INJ IV (13:28)
[2021-11-05] MEDS: HYDROCODONE/ACET 5/325 TABLET 2 TAB PO (14:04)
--- NOTE | 2021-11-05 14:15 | DI.CT.S_ITS ---
PROCEDURE: CT LE LT W CON INDICATIONS: ankle fracture TECHNIQUE: Noncontrast 1-1.5 mm axial sections acquired from above the tibiotalar joint to the bottom of the calcaneus, with coronal and sagittal reformats. COMPARISON: [facility], CR, XR ANKLE LT 2V, 11/05/2021, 13:24. FINDINGS: Image quality: Excellent. Bones: Comminuted fracture of the medial and lateral malleoli with evidence of prior syndesmosis fixation. Small plantar calcaneal enthesophyte. Remote fracture deformity of the 1st metatarsal base. Hallux valgus with fibrocystic change of the 1st metatarsal head as well as degenerative changes of the hallux sesamoids. Soft tissues: Diffuse soft tissue edema about the fracture sites. Small tibiotalar joint effusion IMPRESSION: Comminuted fracture of the medial and lateral malleoli. Dictated by: Buster Santos M.D. on 11/05/2021 at 15:09 Approved by: Buster Santos M.D. on 11/05/2021 at 15:16
== END 2021-11-05 16:16 | disposition home or self-care (01) ==
PROVIDERS: Emergency Provider Emergency Medicine; PCP Student in an Organized Health Care Education/Training Program
DX: S82.52XA Displaced fracture of medial malleolus of left tibia, initial encounter for closed fracture (principal); S82.65XA Nondisplaced fracture of lateral malleolus of left fibula, initial encounter for closed fracture; W18.30XA Fall on same level, unspecified, initial encounter; Y92.89 Other specified places as the place of occurrence of the external cause; Z20.822 Contact with and (suspected) exposure to COVID-19
CPT/HCPCS: 27810; 29515; 36415; 73560; 73600; 73700; 87635; 96374; 96376; 99152; 99153; 99284; 99285; C9803; J1170; J2704

== ENCOUNTER → 2021-11-10 15:49 | Outpatient (CLI) | payer OTHER, SELFPAY ==
[2021-11-10 17:18] LABS: COVID19 -Nasal RAPID Negative (Negative)
== END ==
PROVIDERS: PCP Student in an Organized Health Care Education/Training Program; Referring Provider Family Medicine Sleep Medicine; Visit Provider Family Medicine Sleep Medicine
DX: Z20.822 Contact with and (suspected) exposure to COVID-19 (principal)
CPT/HCPCS: 87635; C9803

== ENCOUNTER 2021-11-13 10:35 | Day surgery (SDC) | payer OTHER, SELFPAY ==
[2021-11-12 07:42] VITALS: BMI 27.1
[2021-11-13] VITALS (18 sets, daily range): BP systolic 110–139; BP diastolic 49–89; PULSE 56–96; RESP 12–18; TEMP 36.1–36.4; O2SAT 94–100; BMI 27.1
[2021-11-13] MEDS: MIDAZOLAM 2 MG/2 ML VIAL IV (12:17)
[2021-11-13] MEDS: fentaNYL 100 MCG/2 ML INJ 50 MCG IV ×4 (12:18→12:27)
--- NOTE | 2021-11-13 12:21 | PM.PREOP ---
Pre-operative Note COVID-19 COVID-19 status: Negative Interval Note History & Physical reviewed/Exam performed by Physician: Yes Changes to H&P: No
[2021-11-13] MEDS: LACTATED RINGERS 1,000 ML 42 ML IV ×2 (12:22→13:08)
[2021-11-13] MEDS: CEFAZOLIN 2 GM/20 ML SYRINGE IV (12:49)
--- NOTE | 2021-11-13 13:01 | SUR.OPER ---
Supine on padded OR bed, head on pillow, arms secured on padded arm boards at <90 degrees abduction, legs uncrossed, safety belt at thigh, tape over blanket over lower legs. bump under left hip and lower leg
[2021-11-13] MEDS: BUPIVACAINE 0.25% (PF) 30 ML, EPINEPHrine 0.15 MG INJ (13:07)
--- NOTE | 2021-11-13 13:22 | SUR.PREOP ---
Block start time at 1215 after time out. Monitoring initiated and maintained throughout procedure. Oxygen at 2L NC and medications given see EMAR. Pt with pain during procedure and Dr Ly gave verbal order, verified to verbally, to give second dose of Fentanyl. . Patient remained stable throughout procedure, no adverse reactions noted. Block end time 1228.
[2021-11-13] MEDS: HYDROMORPHONE 2 MG INJ IV ×2 (15:13→15:22)
--- NOTE | 2021-11-13 15:24 | DI.RAD.S_ITS ---
PROCEDURE: XR ANKLE LT MIN 3V INDICATIONS: FX REPAIR TECHNIQUE: 3 views of the ankle were acquired. COMPARISON: [facility], CT, CT LE LT WO CON, 11/05/2021, 14:37. [facility], CR, XR ANKLE LT 2V, 11/05/2021, 13:24. FINDINGS: Open reduction and internal fixation of medial and lateral malleolar fractures. Ankle mortise appears congruent. IMPRESSION: ORIF of medial and lateral malleolar fractures. Dictated by: Laron Melchor M.D. on 11/13/2021 at 18:08 Approved by: Laron Melchor M.D. on 11/13/2021 at 18:09
[2021-11-13] MEDS: KETOROLAC 30 MG/ML VIAL IV (15:25)
[2021-11-13] MEDS: OXYCODONE/ACETAMINOPHEN 5/325 TABLET 1 TAB PO ×2 (15:26→16:05)
--- NOTE | 2021-11-13 15:35 | P.OP_ITS ---
Operative Date/Time/Diagnoses Date of procedure: 11/13/21 Time of procedure: 13:30 Pre-op diagnosis: 1. Closed bimalleolar fracture left ankle S82.842A 2. Closed fracture dislocation left ankle S82.892A 3. Retained orthopedic hardware Post-op diagnosis: other (Same as above and syndesmotic instability, intra- articular fracture distal tibia) Procedure & Clinicians Procedure: 1. Open reduction internal fixation bimalleolar ankle fracture left CPT code 92543 2. ORIF syndesmosis left CPT code 92746 3. Retained hardware removal left ankle CPT code 64805 Same procedure as scheduled: Yes Indications: Patient is a 50-year-old female with a remote history of a syndesmotic fixation over 10 years ago. She now recently fell getting off her boat when she stepped on a cleat she sustained a left ankle fracture dislocation. She had a reduction in [facility]. She had comminuted bimalleolar ankle fracture just below the level of the syndesmotic button but extending in a split of the fibula above this area there was also fracture of the distal tibia with marginal impaction on the CT scan. She was indicated for operative treatment of her displaced and unstable ankle fracture help restore alignment reduce the risks of posttraumatic arthritis and improve function. The risks and benefits of the procedure have been discussed with the patient even opportunity to ask questions. The risks of surgery include but are not limited to infection, malunion, nonunion, persistence of pain, damage to nerves and blood vessels, posttraumatic a rthritis, DVT, PE, cardiopulmonary complications and . The patient expressed a thorough understanding of the risks and benefits of surgery and has elected to proceed. Consent was signed in the office. Surgeon: Christa Helms Click Yes if Unassisted: Yes Anesthesia Type: General, Peripheral nerve block and Local Operative Notes Findings: Bimalleolar ankle fracture extremely comminuted distal fibula with markedly osteopenic bone. Separate split at the level of the syndesmotic button laterally proximally in the fibula extending approximately 6 cm above the joint line. Additional marginal impaction was noted at the anterior distal tibial plafond and this was cleaned out through the exposure. Syndesmosis was unstable with violation of the previous fixation. Medial malleolus was fixed with 2x4.0 cannulated screws Lateral malleolus was fixed with an 8 hole lateral Arthrex locking plate and additional Vicryl cerclage suture and a separate inter frag screw Distal tibia marginal impaction was debrided. Syndesmosis was unstable and was fixed with a syndesmosis tightrope suture button device Closure Type: primary Specimen(s): none sent Prosthetic devices, grafts, tissues, transplants, or devices: Arthrex 8 hole lateral locking plate with distal and proximal locking screws and cortical screws Syndesmotic tight rope 2x 4.0 cannulated screws 3.0 inter frag lag screw Estimated Blood Loss (mL): 30 Blood products transfused: none Tourniquet time (min): 78 Procedure in detail: Patient was seen in the preoperative area the site of surgery marked informed consent confirmed. She was brought back to the operating room by the anesthesia team. A preoperative block was placed for postoperative pain control. She was positioned supine on operative table. All bony prominences well padded. Well- padded thigh tourniquet was placed on the operative side. The operative leg was prepped and draped in the standard sterile fashion a formal time-out procedure was performed confirming the patient's side site of surgery administration of appropriate preoperative antibiotics. All in the room and in agreement. Implants were in the room and accounted for. Attention turned to the left leg it was elevated and exsanguinated with the Esmarch. Tourniquet was elevated. Then attention was turned to the medial malleolus incision was made along the medial malleolus the saphenous nerve and vein retracted and protected. The displaced medial malleolar fracture was then debrided and reduced and pinned in place this was then fixed with 2x 4.0 cannulated lag screws long thread from the Arthrex set. Attention was then turned laterally in a separate incision was made along the posterior fibula flaps were elevated. The distal fibula was noted to be extremely comminuted and multi fragmentary this was carefully kept with the periosteum in order to keep continuity there was a separate fracture centered at the level of the syndesmotic button obliquely along the fibular shaft. The syndesmotic tight rope was incompetent and this was removed both medially and laterally. Fibula was retracted the level of the most distal fracture to expose the lateral joint line and marginal impaction of the distal tibia this was helio rided. The talar dome was visualized with no obvious large lesions. Once the joint was debrided the oblique fracture element of the fibula was then reduced and clamped and then a 3.0 lag screw was placed to obtain reduction of the shaft. Next attention was turned distally. Due to the extreme osteoporosis and comminution of the distal fibula this was kept with the periosteum and a lateral locking plate was selected. This was pinned to the distal fibula and then locking screws were placed. Again due to the extreme comminution only 2 screws obtain bony purchase. Additional bone was sewn through the bone holes with suture in a cerclage fashion. This established continuity of the distal fibula to the paddle. Then the shaft of the plate was placed along the shaft of the fibula and length was pulled and this was pinned with all lengthening and a small amount of distraction order to obtain fibular length. This was then placed to bone proximally using a cortical screw. Then locking screws were placed due to the overall poor bone quality. Some of the bone debrided from the marginal impaction site at the distal tibia was then used to graft at the distal fibula. Intraoperative fluoroscopy demonstrated good achievement of all length and mortise alignment. The syndesmosis had been violated so a tight rope device was used for fixation of the syndesmosis this was placed 1st with a wire carefully navigating around the medial screws and then overdrilled and then the tightrope XP device was deployed. Final x-rays were taken with AP, mortise, lateral fluoroscopic views demonstrating appropriate alignment and length and placement of hardware. At this point the tourniquet was released and hemostasis was achieved. The wound was closed in layers with 2-0 Vicryl 4-0 Monocryl and 3-0 nylon. A careful and meticulous closure of the patient's ankle tattoos that were in line with the incisions was undertaken. The patient was then placed into a sterile dressing with Xeroform gauze Webril Armijo cotton and a U plaster splint. Additional 30 cc of 0.25% Marcaine with epinephrine was injected prior to dressing placement for additional local anesthetic. Complications: none Post-operative Condition: stable Disposition: PACU Plan for aftercare: Nonweightbearing left lower extremity. Elevate above the heart level 2 weeks. Follow-up in [facility]. Start taking aspirin postop day 1 for DVT prophylaxis. Prescriptions for Toradol, narcotic medication and anti nausea medication were written. Recommend [id number] stool softeners. Keep splint clean dry and intact
--- NOTE | 2021-11-13 17:12 | SUR.PHASEII ---
pt given discharge instructions Pt states she understands discharge instructions. Pt to be discharged with her .
== END 2021-11-13 17:13 | disposition home or self-care (01) ==
PROVIDERS: PCP Student in an Organized Health Care Education/Training Program; Referring Provider Orthopaedic Surgery Foot and Ankle Surgery; Visit Provider Orthopaedic Surgery Foot and Ankle Surgery
PROC: (CPT 27814; principal; 2021-11-13 12:30)
DX: S82.842A Displaced bimalleolar fracture of left lower leg, initial encounter for closed fracture (principal); S82.892A Other fracture of left lower leg, initial encounter for closed fracture; M25.372 Other instability, left ankle; W17.89XA Other fall from one level to another, initial encounter; Y93.89 Activity, other specified; Y92.89 Other specified places as the place of occurrence of the external cause; M81.0 Age-related osteoporosis without current pathological fracture; I10 Essential (primary) hypertension
CPT/HCPCS: 27814; 27829; 64450; 73610; 76000; J0171; J0690; J1100; J1170; J1885; J2250; J2405; J2704; J3010

== ENCOUNTER → 2022-02-09 15:55 | Outpatient (CLI) | payer OTHER, SELFPAY ==
[2022-02-09 17:17] LABS: Add Manual Diff / Slide Review NO; Basophils Absolute Auto 0 /uL (0-100); Basophils Percent Auto 0.7 % (0-2); Eosinophils Absolute Auto 100 /uL (0-450); Hematocrit 41.6 % (36-46); Hemoglobin 14.2 g/dL (12.0-16.0); Lymphocytes Absolute Auto 2200 /uL (1100-4500); Lymphocytes Percent Auto 31.8 % (25-40); Mean Corpuscular HGB Conc 34.1 % (30-36); Mean Corpuscular Volume 96.9 fL (80-100); Monocytes Absolute Auto 400 /uL (0-900); Monocytes Percent Auto 6.1 % (3-14); Neutrophils Absolute Auto 4200 /uL (1500-7000); Neutrophils Percent Auto 60.4 % (50-75); Platelet Count 337 X10^3/uL (150-400); Red Blood Cell Count 4.29 X10^6/uL (4.0-5.2); White Blood Cell Count 6.9 X10^3/uL (4.5-11.0)
[2022-02-09 17:36] LABS: Alanine Aminotransferase 17 IU/L (<35); Albumin 4.6 g/dL (3.5-5.0); Albumin Globulin Ratio 1.6 (1.0-2.8); Alkaline Phosphatase 119 U/L (38-126); Aspartate Aminotransferase 38 IU/L (14-36); BUN Creatinine Ratio 12.3 (6-22); Bilirubin Total 0.5 mg/dL (0.2-1.3); Blood Urea Nitrogen 9 mg/dL (7-17); Calcium 9.7 mg/dL (8.4-10.2); Carbon Dioxide 26 mmol/L (22-32); Chloride 100 mmol/L (98-107); Estimated Glomerular Filt Rate > 60 mL/min (>60); Globulin 2.9 g/dL (1.7-4.1); Glucose 101 mg/dL (70-100); HEMOLYSIS < 15 (0-50); Phosphorous 3.3 mg/dL (2.5-4.5); Potassium 4.4 mmol/L (3.4-5.1); Sodium 136 mmol/L (137-145); Total Protein 7.5 g/dL (6.3-8.2)
[2022-02-09 18:03] LABS: TSH w/ Reflex to FT4 2.17 uIU/mL (0.47-4.68)
[2022-02-10 17:20] LABS: Vitamin D 25 Hydroxy (D3) 26.1 ng/mL (30.0-100.0)
== END ==
PROVIDERS: PCP Student in an Organized Health Care Education/Training Program; Referring Provider Student in an Organized Health Care Education/Training Program; Visit Provider Student in an Organized Health Care Education/Training Program
DX: F41.8 Other specified anxiety disorders (principal); I10 Essential (primary) hypertension; M84.40XA Pathological fracture, unspecified site, initial encounter for fracture
CPT/HCPCS: 36415; 80053; 82306; 84100; 84443; 85025

== ENCOUNTER → 2022-02-24 09:58 | Outpatient (CLI) | payer OTHER, SELFPAY | PROVIDERS: PCP Student in an Organized Health Care Education/Training Program; Referring Provider Student in an Organized Health Care Education/Training Program; Visit Provider Student in an Organized Health Care Education/Training Program | DX: Z78.0 Asymptomatic menopausal state (principal); M84.40XA Pathological fracture, unspecified site, initial encounter for fracture; Z13.820 Encounter for screening for osteoporosis; M85.89 Other specified disorders of bone density and structure, multiple sites; Z90.710 Acquired absence of both cervix and uterus | CPT/HCPCS: 77080 ==

== ENCOUNTER → 2022-03-17 10:37 | Outpatient (CLI) | payer OTHER, SELFPAY ==
--- NOTE | 2022-03-17 | DI.CT.S_ITS ---
PROCEDURE: CT LE LT W CON INDICATIONS: DELAYED UNION OF CLOSED FX OF LEFT ANKLE TECHNIQUE: Noncontrast 1-1.5 mm axial sections acquired from above the tibiotalar joint to the bottom of the calcaneus, with coronal and sagittal reformats. COMPARISON: [facility], CT, CT LE LT WO CON, 11/05/2021, 14:37. FINDINGS: Image quality: Diagnostic. Beam hardening artifacts from ankle fixation hardware are seen. Bones: Patient is status post internal fixation of medial malleolus, distal fibular shaft/lateral malleolus and distal tibial fibular syndesmosis with multiple surgical hardware in place. No gross hardware loosening or failure is seen. There is well corticated margin along patient's known medial malleolus fracture site with up to 4 mm diastasis. Partial bony union surrounding fixation screw and medial malleolus fracture site is seen. There is partial bony union at patient's known comminuted distal fibular shaft/medial malleolus fracture site with 2-3 mm diastasis at infused fracture site with fairly well corticated margin. Moderate tibiotalar and subtalar joint osteoarthritic changes are seen. Aogn-kg-[id number] osteoarthritic changes are also seen in midfoot and forefoot joints. No other fracture or dislocation. No suspicious bony lesion. Widened distal tibial fibular syndesmosis is again measures up to 4 mm in distance. Soft tissues: There is soft tissue swelling around ankle joint fracture site. Moderate tibiotalar joint effusion is seen. No definite intra-articular loose bodies. No abnormal soft tissue calcifications. Achilles tendon is intact. Plantar fascia is normal in thickness. Extensor, flexor, and peroneus tendons show no full-thickness rupture. IMPRESSION: 1. Prior ORIF of medial malleolus and distal fibular shaft/lateral malleolus. No gross hardware loosening or failure. 2. Minimal amount of bony union noted at medial malleolus fracture site adjacent to the fixation screws. Up to 4 mm diastasis at rest of the medial malleolus fracture site with well corticated margin concerning for delayed union or nonunion. 3. Partial bony union achieved at comminuted fibular shaft/lateral malleolus fracture site. 4. Moderate midfoot and hindfoot joint osteoarthritis. No other fracture or dislocation. No suspicious intraosseous lesion. 5. Moderate ankle joint effusion, no gross loose bodies. Moderate soft tissue swelling around ankle joint fracture site. No abnormal soft tissue calcifications. No full-thickness tendon rupture. Dictated by: Michael Cintron M.D. on 03/17/2022 at 12:43 Approved by: Michael Cintron M.D. on 03/17/2022 at 13:00
== END ==
PROVIDERS: PCP Student in an Organized Health Care Education/Training Program; Referring Provider Orthopaedic Surgery Foot and Ankle Surgery; Visit Provider Orthopaedic Surgery Foot and Ankle Surgery
DX: S82.892G Other fracture of left lower leg, subsequent encounter for closed fracture with delayed healing (principal); M19.072 Primary osteoarthritis, left ankle and foot; M25.472 Effusion, left ankle; M79.89 Other specified soft tissue disorders
CPT/HCPCS: 73700

== ENCOUNTER → 2022-04-29 11:43 | Outpatient (CLI) | payer OTHER, SELFPAY ==
[2022-04-29 15:13] LABS: COVID19 -Nasal RAPID Negative (Negative)
== END ==
PROVIDERS: PCP Student in an Organized Health Care Education/Training Program; Referring Provider Orthopaedic Surgery Foot and Ankle Surgery; Visit Provider Orthopaedic Surgery Foot and Ankle Surgery
DX: Z20.822 Contact with and (suspected) exposure to COVID-19 (principal)
CPT/HCPCS: 87635; C9803

== ENCOUNTER 2022-04-30 06:09 | Day surgery (SDC) | payer OTHER, SELFPAY ==
[2022-04-23 14:21] VITALS: BMI 26.5
[2022-04-30] VITALS (7 sets, daily range): BP systolic 99–120; BP diastolic 72–85; PULSE 60–102; RESP 12–20; TEMP 36.2–36.7; O2SAT 95–99; BMI 26.5
[2022-04-30] MEDS: LACTATED RINGERS 1,000 ML 42 ML IV ×3 (07:05→13:30)
--- NOTE | 2022-04-30 07:26 | PM.PREOP ---
Pre-operative Note COVID-19 COVID-19 status: Negative Interval Note History & Physical reviewed/Exam performed by Physician: Yes Changes to H&P: No
--- NOTE | 2022-04-30 07:41 | P.OP_ITS ---
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 Repair fracture malunion tibia CPT code left 05389 2. Transfer flexor digitorum longus tendon left CPT code 73692 3. Medial displacement Calcaneal osteotomy CPT code 90687 -59 4. Osteotomy fibula was fixation CPT code 74859 -59 5. Fusion single tarsometatarsal joint (1st TMT) left CPT code 76199-30 6. Revision procedure syndesmosis CPT code 35037, left -59 7. Removal of hardware ankle CPT code 62487 The procedure was performed using a number 22 modifier. Due to malunion multiple deformities requiring reconstruction, multiple osteotomies, hardware removal, extensive scar tissue excision difficulty of exposure through previously operated bed. It also involved complex deformities of both the ankle and foot making the surgery take approximately twice as long as any standard ankle fracture or flatfoot reconstruction procedure. Same procedure as scheduled: Yes Indications: The patient is a 51-year-old female has and left ankle malunion and posttraumatic arthritis. Fractures 5-month-old. She had progressive valgus in the postoperative period. She has pet planus with hypermobility of the 1st TMT and hindfoot valgus on the affected side. She has been counseled on options. Due to her young age and active lifestyle I have proposed a attempted ankle salvage realignment and realignment of her ankle and foot. We discussed she may go on to progressive symptomatic AC arthritis but we were able to reestablish a neutral hindfoot correct her flatfoot deformity then if symptomatic in the future she may also be a candidate for total ankle arthroplasty. We discussed this is not possible with the existing deformity of her foot. She also has a nonunion of the medial malleolus would benefit from medial displacement calcaneal osteotomy and correction of her 1st TMT instability with a 1st TMT fusion. Plan would be to explore the posterior tibialis tendon repair or the FDL transfer as indicated. As well as address the malunion possible revision syndesmosis and fibular osteotomy lengthening. The risks and benefits of the procedure have been discussed with the patient and given the opportunity to ask questions. The risks of surgery include but are not limited to infection, malunion, nonunion, persistence of pain, damage to nerves and blood vessels, posttraumatic arthritis, DVT, PE, coardiopulmonary complications and . The patient expressed a thorough understanding of the risks and benefits of surgery and has elected to proceed. Consent was signed in the office. During the operation, the services of a physician surgical consultant were medically indicated and necessary to provide the exposure of the operative site for the surgical procedure and to maintain the limb in a proper position to carry out the operation safely and efficiently. Without a qualified assistant track coach being present this would extended the operative procedure and made the procedure technically more difficult to perform. Surgeon: Christa Helms Estimator Project Manager: Nicolle Villegas Anesthesia Type: General, Peripheral nerve block and Local Operative Notes Findings: Left ankle fracture nonunion, malunion. Left flexible pes planus deformity with 1st TMT hypermobility and hallux valgus Posterior tibialis tendon tear Widened syndesmosis. Closure Type: primary Specimen(s): none sent Estimated Blood Loss (mL): 200 Blood products transfused: none Tourniquet time (min): 130 (elevated for the 130 minutes, then down for 2 hours, and then elevated 61 minutes) Procedure in detail: Patient was seen the preoperative area the site of surgery marked informed consent confirmed. The patient underwent a regional block by the anesthesiologist for postoperative pain control. The patient was then brought back to the operating room by the anesthesia team positioned supine on operative table. General anesthetic was administered. All bony prominences well padded. A well-padded thigh tourniquet was placed. An ipsilateral thigh bump was placed. The left lower extremities prepped and draped in the standard sterile fashion. A formal time-out procedure was performed confirming the patient's side and site of surgery administration of appropriate preoperative antibiotics which was Ancef. Ancef was appropriately re-dosed during the case. Attention was then turned to the left lower extremity. The Esmarch was used for exsanguination the tourniquet raised on the thigh to 250 mmHg. Attention was turned to the ankle. Medial displacement calcaneus osteotomy: First the C-arm was brought in and the starting point for the medial displacement calcaneal osteotomy for the patient's hindfoot valgus deformity was established this was marked on the skin. Next a small incision was made through the skin for the minimally invasive Arthrex 3 x 20 mm bur. This was then advanced across the calcaneus all the way to the medial cortex were was felt and then it was pulled back to be assisted an and then with careful sweeping motion this was then used to create the calcaneal osteotomy in the standard four quartile manner, with the 1st quarter on the near superior corner next the bur was advanced back to the medial cortex and the far superior quarter was transected and then the bur was withdrawn again and the near inferior and the far inferior quarters were completed. Once this was completed the Lowland elevator was used to help mobilize and then this air elevator was placed to help with the medial translation. This was stuck on some soft tissues plantarly therefore the incision was just extended slightly in order to provide visualization this was then bluntly dissected and a lamina funds development director inserted to help with mobilization. This allowed this air elevator to be reinserted and excellent medial translation of approximately 1 cm. This was provisionally pinned from the posterior calcaneus and then in axial and lateral fluoroscopy views were checked. The translation was appropriate and 2 K-wires for the 6.7 screws were placed. These were then measured and then drilled and countersunk and a 40 mm and a 45 mm short thread 6.7 screw were used to fix the calcaneus medial displacement osteotomy. Next attention was turned to the medial malleolus nonunion of the tibia: New incision was made along the posterior border of the medial malleolus so that the posterior tibialis tendon could be accessed through the same incision. This was taken down along the medial malleolus and to the level of the navicular. A careful dissection was taken through the subcutaneous tissues. There was is copious scar encountered at the level of the medial malleolus. This was debrided. The 24.0 cannulated screws from the medial malleolus malunion were identified. The posterior and medial aspect of the medial malleolus was the nonunited part and the nonunion was exposed. Additionally dissection was taken posteriorly and the posterior tibialis tendon was identified. This was torn at the level of the fracture. This was not a complete tear but it was high-grade greater than 50% in the remaining tendon was severely degenerated additional the tendon was incarcerated in the scar and there was no posterior tibialis tendon excursion on initial exposure. The 4-0 cannulated screws were removed from the medial malleolus nonunion the nonunion was cleaned out an osteotome was used to fully mobilize this with care back to the level of the joint. Once this was mobilized out reduction was completed carefully translating and a rotating the medial malleolus to restore the curved contour of the distal tibia and address the valgus malunion that is been present. This was pinned provisionally with K- wires. And due to the poor bone quality was fixed with a 3 hole hook plate for the medial malleolus from the Arthrex set this was fixed with 1 4-0 cannulated screw distally 2 x 2.7 locking screws distally and a 4.0 cancellous screw and 3.5 cortical screw proximally which restored a more anatomic contour of the distal tibia and medial malleolus. Syndesmosis revision and fibular osteotomy: The ankle was inspected. At this point the syndesmosis was still wide. This was felt to benefit from direct exposure so a open exposure of the syndesmosis was made just over the lateral gutter on the anterolateral ankle care was taken to identify and protect the superficial peroneal nerve. Dissection was taken right down on the lateral gutter and lateral ankle joint. A pituitary was used to debride 1 spike of bone that had been noted on the CT scan to be at the syndesmosis and then scar tissue was removed. The syndesmosis suture button device was removed and the syndesmosis mobilized. This was attempted to be reduced using thumb pressure, K-wires and clamps were felt that it was stool all wide and the fibula was still a few mm short therefore decision was made for a lengthening fibular osteotomy. Separate incision was made at the proximal aspect of the fibular plate. The proximal shaft fibular screws were removed as well as the inter frag screw this level it was decided for the fibular osteotomy this was made with a saw obliquely then a outside of the plate 16 mm cortical screw was placed just proximal to the fibular plate and a lamina funds development director was placed between the screw and the plate using a push pull technique the lamina funds development director lengthened the fibula approximately 4 mm the plate was then secured retrialing the cortical holes and replacing the fibular screws. This aided with the syndesmotic reduction which was then completed using a combination of some pressure direct visualization a clamps and a K-wire. This was checked on AP mortise and lateral imaging and compared against the imaging from the contralateral side I had obtained at the beginning of case prior to draping. Once I was satisfied with this the syndesmosis was then fixed with 3 tricortical 3.5 mm cortical screws. The fibular osteotomy was grafted with DBM putty. FDL transfer: The posterior tibialis tendon was torn and degenerative in a 4 cm section at the level of the medial malleolus fracture. Was felt the patient would require an FDL transfer. Flexor digitorum longus was then identified posterior to the posterior tibialis tendon and traced distally to the level of the master knot of Chong. The FDL was then harvested. Distally the FDL and FHL were tenodesed with a 2 0 FiberWire. The FDL was fashion with a FiberLoop and measured and fit easily through a 5 mm Sizer so a 4.75 mm interference screw was planned. A through and through 5 mm a tunnel was made in the navicular from medial to lateral the FDL was woven through the distal posterior tibialis stump and then through the tunnel into the navicular it was pulled out on a Beath pin once tension was obtained this was fixed with a 4.75 x 19 mm bio tenodesis interference screw. The FDL was tacked down to the posterior tibialis tendon distally at the point of the weave and then proximal to the level of the tear these were also tenodesed using FiberWire. Then the central degenerative torn area of the posterior tibialis tendon was removed. Attention was then turned to the foot. The 1st TMT hypermobility and hallux valgus was addressed through a 1st TMT fusion: Separate incision was made dorsally to the TMT this was taken down through the skin subcutaneous tissues. The EHL was protected and retracted laterally. The dorsal approach to the TMT joint was undertaken. The plantar ligaments were broken up using an osteotome and the osteotomes from the [employer] joint prep set were used to prepare the joint removed the cartilage. Additional saw was used to plane medial cuneiform to help with correction. Next the 2-0 drill was used to fenestrate the bone ends and some more of the DBM putty was used for graft. The 1st metatarsal was then reduced through a supination plantar flexion maneuvers to correct the hallux valgus and pes planus. This was provisionally pinned and then fixed with a Lapidus plate from the Arthrex set this was a of 3 5 T-plate. This was placed proximally with locking screws and distally under compression through the oblong hole and then a locking screw in the final metatarsal hole. This provided excellent compression and correction. At this point tourniquet was released hemostasis was achieved. Final x-rays were taken confirming appropriate correction alignment of the ankle and the foot the. The wounds were copiously irrigated and closed with 2-0 Vicryl 4-0 Monocryl a 3-0 nylon 4-0 nylon and regina. Additional local anesthetic was administrated. A bulky Armijo style splint was placed. The patient was woken from anesthesia in good condition there no immediate complications from this procedure. All counts were correct. Complications: none Post-operative Condition: stable Disposition: PACU Plan for aftercare: Nonweightbearing on the left lower extremity. Elevate above the heart level for the 1st 2 weeks postoperatively. Will take aspirin for postop DVT prophylaxis. Has prescriptions for Toradol, oxycodone. May also take Tylenol. After finished with five-day Toradol prescription then can take other anti- inflammatories if required. Follow up in clinic in 2 weeks may have some staple removal at that time and then will be placed into a cast. Will remain nonweightbearing for 6 weeks postoperative
[2022-04-30] MEDS: CEFAZOLIN 2 GM/100 ML PREMIX 100 ML IV ×2 (07:59→12:03)
--- NOTE | 2022-04-30 08:40 | SUR.OPER ---
Supine on padded OR bed, head on pillow, arms secured on padded arm boards at <90 degrees abduction, legs uncrossed, safety belt at waist, tape over blanket over lower right leg, left leg draped free with gel bump under left gluteus and towels stacked under left calf.
--- NOTE | 2022-04-30 08:46 | SUR.PREOP ---
Block start time 0745 after saftey pause Monitoring initiated and maintained throughout procedure. Oxygen and medications given per anesthesiologist instructions. Patient remained stable throughout procedure, no adverse reactions noted. Block end time [0755].
[2022-04-30] MEDS: BUPIVACAINE 0.25% (PF) 30 ML, EPINEPHrine 0.15 MG INJ (08:49)
--- NOTE | 2022-04-30 14:05 | DI.RAD.S_ITS ---
PROCEDURE: XR ANKLE LT MIN 3V INDICATIONS: LEFT ANKLE FRACTURE REPAIR TECHNIQUE: Multiple spot fluoroscopic intraoperative images. COMPARISON: [facility], CR, XR ANKLE 3+ VIEWS LEFT, 04/17/2022, 9:35. [facility], CR, XR ANKLE LT MIN 3V, 11/13/2021, 13:19. FINDINGS: Spot fluoroscopic intraoperative images demonstrate placement of a metallic plate screw construct at the medial malleolus as well as placement of 3 transsyndesmotic screws within the lateral fibular plate interval removal of an interfragmentary screw. Changes also seen from calcaneal osteotomy and fixation with 2 cannulated lag screws. It there is placement of a metallic plate and screw construct at the 1st tarsometatarsal joint. IMPRESSION: Multifocal postsurgical changes as described above. Dictated by: Nando Noland M.D. on 04/30/2022 at 14:47 Approved by: Nando Noland M.D. on 04/30/2022 at 14:51
== END 2022-04-30 16:04 | disposition home or self-care (01) ==
PROVIDERS: PCP Student in an Organized Health Care Education/Training Program; Referring Provider Orthopaedic Surgery Foot and Ankle Surgery; Visit Provider Orthopaedic Surgery Foot and Ankle Surgery
PROC: (CPT 27720; principal; 2022-04-30 07:45)
DX: S82.892P Other fracture of left lower leg, subsequent encounter for closed fracture with malunion (principal); M76.829 Posterior tibial tendinitis, unspecified leg; M21.42 Flat foot [pes planus] (acquired), left foot; M20.12 Hallux valgus (acquired), left foot; M19.172 Post-traumatic osteoarthritis, left ankle and foot
CPT/HCPCS: 27720; 27691; 27707; 28740; 27829; 28300; 27704; 64450; 73610; 76000; C1713; J0171; J0690; J1100; J1170; J1885; J2250; J2405; J2704; J2765; J3010

== ENCOUNTER → 2022-10-01 11:07 | Outpatient (CLI) | payer OTHER, SELFPAY ==
[2022-10-01 12:51] LABS: Occult Blood 1 Negative (Negative)
[2022-10-01 12:52] LABS: Occult Blood 2 Negative (Negative); Occult Blood 3 Negative (Negative)
[2022-10-01 13:36] LABS: Clostridium Difficile Tox PCR Negative for C. diff (Negative)
== END ==
PROVIDERS: PCP Student in an Organized Health Care Education/Training Program; Referring Provider Student in an Organized Health Care Education/Training Program; Visit Provider Student in an Organized Health Care Education/Training Program
DX: K52.9 Noninfective gastroenteritis and colitis, unspecified (principal)
CPT/HCPCS: 82270; 87045; 87493; 87899

== ENCOUNTER → 2022-10-23 10:09 | Outpatient (CLI) | payer OTHER, SELFPAY ==
[2022-10-23 12:39] LABS: Vitamin D 25 Hydroxy (D3) 27.9 ng/mL (30.0-100.0)
[2022-10-23 13:14] LABS: Add Manual Diff / Slide Review NO; Basophils Absolute Auto 100 /uL (0-100); Basophils Percent Auto 1.1 % (0-2); Eosinophils Absolute Auto 100 /uL (0-450); Eosinophils Percent Auto 2.1 % (2-4); Hematocrit 38.1 % (36-46); Lymphocytes Absolute Auto 1500 /uL (1100-4500); Lymphocytes Percent Auto 32.8 % (25-40); Mean Corpuscular HGB Conc 34.1 % (30-36); Mean Corpuscular Hemoglobin 35.6 PG (26-34); Mean Corpuscular Volume 104.4 fL (80-100); Monocytes Absolute Auto 300 /uL (0-900); Monocytes Percent Auto 7.1 % (3-14); Neutrophils Absolute Auto 2600 /uL (1500-7000); Neutrophils Percent Auto 56.9 % (50-75); Platelet Count 331 X10^3/uL (150-400); Red Blood Cell Count 3.65 X10^6/uL (4.0-5.2); Red Cell Distribution Width 14.8 % (11.6-14.8); White Blood Cell Count 4.6 X10^3/uL (4.5-11.0)
[2022-10-23 13:18] LABS: HIV 1 & 2 Ab/Ag 4th Gen Combo NEGATIVE (NEGATIVE)
[2022-10-23 13:29] LABS: Alanine Aminotransferase 22 IU/L (<35); Albumin 4.4 g/dL (3.5-5.0); Albumin Globulin Ratio 1.2 (1.0-2.8); Alkaline Phosphatase 134 U/L (38-126); Aspartate Aminotransferase 62 IU/L (14-36); BUN Creatinine Ratio 19.6 (6-22); Bilirubin Total 0.8 mg/dL (0.2-1.3); Blood Urea Nitrogen 10 mg/dL (7-17); Calcium 9.4 mg/dL (8.4-10.2); Carbon Dioxide 23 mmol/L (22-32); Chloride 102 mmol/L (98-107); Estimated Glomerular Filt Rate > 60 mL/min (>60); Globulin 3.7 g/dL (1.7-4.1); Glucose 69 mg/dL (70-100); Lipase 220 U/L (23-300); Potassium 4.8 mmol/L (3.4-5.1); Sodium 136 mmol/L (137-145); Total Protein 8.1 g/dL (6.3-8.2)
[2022-10-23 13:31] LABS: HEMOLYSIS 72 (0-50)
[2022-10-27 16:47] LABS: Tissue Transglutaminase IgA <2 U/mL (0-3); Tissue Transglutaminase IgG <2 U/mL (0-5)
== END ==
PROVIDERS: PCP Student in an Organized Health Care Education/Training Program; Referring Provider Student in an Organized Health Care Education/Training Program; Visit Provider Student in an Organized Health Care Education/Training Program
DX: K52.9 Noninfective gastroenteritis and colitis, unspecified (principal)
CPT/HCPCS: 36415; 80053; 82306; 83516; 83690; 85025; 87389

== ENCOUNTER 2022-11-13 09:59 | Day surgery (SDC) | payer OTHER, SELFPAY ==
[2022-11-13] VITALS (11 sets, daily range): BP systolic 115–137; BP diastolic 74–93; PULSE 61–85; RESP 10–20; TEMP 36.3–36.5; O2SAT 96–100; BMI 26.5
[2022-11-13] MEDS: LACTATED RINGERS 1,000 ML 42 ML IV (10:54)
--- NOTE | 2022-11-13 11:30 | PM.PREOP ---
Pre-operative Note Interval Note History & Physical reviewed/Exam performed by Physician: Yes Changes to H&P: No
[2022-11-13] MEDS: CEFAZOLIN 2 GM/100 ML PREMIX 100 ML IV (11:32)
--- NOTE | 2022-11-13 11:49 | SUR.OPER ---
Supine on padded OR bed, head on pillow, arms secured on padded arm boards at <90 degrees abduction, legs uncrossed, safety belt at waist, tape over blanket over lower right leg, left leg draped free with gel bump under left hip and blankets under left lower leg.
[2022-11-13] MEDS: BUPIVACAINE 0.25% (PF) 30 ML, EPINEPHrine 0.15 MG INJ (11:56)
[2022-11-13] MEDS: ACETAMINOPHEN 325 MG TABLET PO ×2 (12:25)
--- NOTE | 2022-11-13 12:31 | PM.OP.1 ---
Operative Date/Time/Diagnoses Date of procedure: 11/13/22 Time of procedure: 12:31 Pre-op diagnosis: Painful orthopedic hardware Post-op diagnosis: same Procedure & Clinicians Procedure: Hardware removal deep implant left ankle removal of 2 screws CPT code 78072 Same procedure as scheduled: Yes Indications: Patient is a 51-year-old female status post a complex left ankle fracture malunion and flatfoot reconstruction. She is noticed loosening and prominence of of her lateral screws that is increased over the last few days. She was found to have a grossly loose and prominent syndesmotic screw and a loose more distal syndesmotic screw. She was indicated for hardware removal. The risks and benefits of the procedure have been discussed with the patient and given the opportunity to ask questions. The risks of surgery include but are not limited to infection, malunion, nonunion, persistence of pain, damage to nerves and blood vessels, posttraumatic arthritis, DVT, PE, coardiopulmonary complications and . The patient expressed a thorough understanding of the risks and benefits of surgery and has elected to proceed. Consent was signed in the office today. Surgeon: Christa Helms Click Yes if Unassisted: Yes Anesthesia Type: General and Local Operative Notes Findings: Loose syndesmotic screws. The distal 2 were grossly loose. The middle screw was prominent. The distal 2 syndesmotic screws were removed. Closure Type: primary Specimen(s): none sent Estimated Blood Loss (mL): 5 Blood products transfused: none Tourniquet time (min): 0 Procedure in detail: Patient was seen in the preoperative area the site of surgery marked informed consent for bear she was brought back to the operating room by the anesthesia team positioned supine on the operative table. Anesthesia was administered. The left lower extremity was prepped and draped in the standard sterile fashion. A formal time-out procedure was performed confirming the patient's side and site of surgery administration of preoperative antibiotic. All were in agreement. Attention was turned to the left lower extremity. There was a palpable syndesmotic screw laterally. Skin was anesthetized with 0.25% Marcaine with epinephrine. Incision was made through the previous incision and the loose syndesmotic screw was exposed and removed using the screwdriver. Then just distal to this the Bovie was used to expose the more distal syndesmotic screw which was also grossly loose and this was backed out with the screwdriver in the same fashion. Once these were completed appropriate hardware we will was confirmed with mini C-arm fluoroscopy. Then the wound was irrigated and closed with 4-0 Monocryl and 3-0 nylon suture. A sterile dressing with Xeroform gauze and Tegaderm were placed. Drapes removed. Patient was woken from anesthesia taken to recovery room in good condition. There no immediate complications from this procedure. All counts were correct. Complications: none Post-operative Condition: stable Disposition: PACU Plan for aftercare: Weightbear as tolerated. May shower. Keep a dressing over the sutures. Return to clinic in 2 weeks for suture removal.
--- NOTE | 2022-11-13 12:50 | SUR.PHASEII ---
Patient having severe post operative shivering. Rosendo teresa CRNA at bedside. Demerol ordered,
[2022-11-13] MEDS: MEPERIDINE 50 MG/ML INJ 12.5 MG IV ×2 (12:56→13:03)
--- NOTE | 2022-11-13 13:10 | SUR.PHASEII ---
Patients shivering has resolved. She does note that her right side of her tongue is numb. Patient states she noticed it starting at about the time she was given medications to put her to sleep in the OR.
--- NOTE | 2022-11-13 13:29 | SUR.PHASEII ---
ASSOCIATE DIRECTOR REGULATORY AFFAIRS called regarding patients numb tongue and reported he had used lidocaine jelly on LMA which would be the cause of numb tongue. Patient advised of this and verbalized understanding.
== END 2022-11-13 12:39 | disposition home or self-care (01) ==
PROVIDERS: PCP Student in an Organized Health Care Education/Training Program; Referring Provider Orthopaedic Surgery Foot and Ankle Surgery; Visit Provider Orthopaedic Surgery Foot and Ankle Surgery
PROC: (CPT 20680; principal; 2022-11-13 11:45)
DX: T84.84XA Pain due to internal orthopedic prosthetic devices, implants and grafts, initial encounter (principal); M20.12 Hallux valgus (acquired), left foot
CPT/HCPCS: 20680; J0171; J0690; J1100; J1885; J2175; J2405; J2704; J3010

== ENCOUNTER → 2022-12-07 11:51 | Outpatient (CLI) | payer OTHER, SELFPAY ==
--- NOTE | 2022-12-07 11:52 | DI.US.S_ITS ---
PROCEDURE: US ABDOMEN LIMITED INDICATIONS: CHRONIC DIARRHEA/ELEVATED LFTS TECHNIQUE: Real-time scanning was performed of the abdominal and retroperitoneal organs, with image documentation. COMPARISON: None. FINDINGS: Liver: Increased liver echogenicity. Gallbladder: Absent. Biliary ducts: Intrahepatic bile ducts are non-dilated. Extrahepatic bile duct caliber measures 9.6 mm. Normal is 6-7 mm or less in diameter, or 10 mm or less post-cholecystectomy. Pancreas: Visualized portions of the pancreas are sonographically normal. IMPRESSION: Increased liver echogenicity, commonly caused by mild hepatic steatosis. Dictated by: Armani Miller M.D. on 12/07/2022 at 14:15 Approved by: Armani Miller M.D. on 12/07/2022 at 14:16
--- NOTE | 2022-12-07 11:53 | DI.MG.S_ITS ---
BILATERAL DIGITAL SCREENING MAMMOGRAM 3D/2D WITH CAD: 12/07/2022 CLINICAL: Routine screening. Comparison is made to exam dated: 07/05/2021 mammogram - [facility]. There are scattered areas of fibroglandular density in both breasts (category b / 25%-50% glandular tissue). Current study was also evaluated with a Computer Aided Detection (CAD) system. No significant masses, calcifications, or other findings are seen in either breast. There has been no significant interval change. IMPRESSION: NEGATIVE There is no mammographic evidence of malignancy. A 1 year screening mammogram is recommended. Based on the Tyrer Cuzick model (a risk assessment model) the patient's lifetime risk is 4.9% and her 10 year risk is 1.2%. According to the ACR, ACS, and NCCN guidelines, an annual breast MRI exam along with mammogram is recommended if the patient's lifetime risk is 20% or greater. This exam was interpreted at Station ID: [id number]. NOTE: For mammograms, a report in lay terms will be sent to the patient. Approximately 15% of breast malignancies will not be visualized mammographically. In the management of a palpable breast mass, a negative mammogram must not discourage biopsy of a clinically suspicious lesion. Electronically Signed By: Khoi tinoco/taisha:12/07/2022 17:07:58 letter sent: Normal Exam ACR BI-RADS Category 1: Negative [id number]
== END ==
PROVIDERS: PCP Student in an Organized Health Care Education/Training Program; Referring Provider Student in an Organized Health Care Education/Training Program; Visit Provider Student in an Organized Health Care Education/Training Program
DX: Z12.31 Encounter for screening mammogram for malignant neoplasm of breast (principal); R79.89 Other specified abnormal findings of blood chemistry; K52.9 Noninfective gastroenteritis and colitis, unspecified
CPT/HCPCS: 76705; 77063; 77067